=== PATIENT | male | born 1955 ===

== ENCOUNTER 2020-09-21 10:04 | Outpatient (REF) | payer MEDICARE, SELFPAY | END 2020-09-21 10:05 | disposition home or self-care (01) | LOC: HO.WFDLNP 10:04 | PROVIDERS: Visit Provider Internal Medicine | DX: Z20.822 Contact with and (suspected) exposure to COVID-19 (principal) | CPT/HCPCS: C9803; U0003; U0005 ==

== ENCOUNTER → 2021-09-24 11:10 | Outpatient (BNVA) | payer SELFPAY | PROVIDERS: PCP Internal Medicine; Visit Provider Physician Assistant Medical | DX: Z02.79 Encounter for issue of other medical certificate (principal) ==

== ENCOUNTER 2022-09-08 18:36 | Emergency (ER) | payer MEDICARE, SELFPAY ==
--- NOTE | ~2022-09-08 | CT_ITS ---
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 Sagittal and coronal reformatted images were obtained on the technologist's workstation. Oral contrast: No This CT examination was performed using dose optimization techniques as appropriate, variously including the following: *Automated exposure control *Adjustment of mA and/or kV according to patient size (this includes techniques or standardized protocols for targeted exams where dose is matched to indication/reason for exam; i.e. extremities or head) *Use of iterative reconstruction technique DLP: 662 mGy-cm FINDINGS: LUNG BASES: The visualized lung bases are unremarkable. LIVER, GALLBLADDER, AND BILIARY TREE: The liver is normal in size, shape, and attenuation. No focal hepatic lesion or biliary ductal dilatation is present. The gallbladder is contracted but otherwise unremarkable with no evidence of radiopaque gallstones, gallbladder wall thickening, or obvious pericholecystic inflammatory changes. PANCREAS: Unremarkable. SPLEEN: Unremarkable. ADRENAL GLANDS: Unremarkable. KIDNEYS AND URETERS: The kidneys are normal in size, shape, and attenuation. No hydronephrosis, hydroureter, or calculi seen. No perinephric stranding. BLADDER: Unremarkable. GASTROINTESTINAL TRACT: The small and large bowel are unremarkable. The appendix is unremarkable. ABDOMINAL WALL: No significant hernia is appreciated. LYMPH NODES: No retroperitoneal lymphadenopathy. VASCULAR: Unremarkable. PELVIC VISCERA: Some soft tissue thickening is seen in the medial right buttock cheek without an abscess. A small hydrocele is present on the right. No significant subcutaneous air is seen to suggest the presence of Kimo's gangrene. The prostate and seminal vesicles are not seen. OSSEOUS STRUCTURES: Unremarkable. Some minimal degenerative changes are seen. CT/CT abdomen pelvis w IV con IMPRESSION: 1. No evidence of Kimo's gangrene. 2. Soft tissue thickening in the medial right buttock cheek without abscess. 3. Small right-sided hydrocele. Fleischner guidelines were followed.
--- NOTE | ~2022-09-08 | US_ITS ---
EXAMINATION: US SCROTUM CLINICAL INFORMATION: Question scrotal abscess status post buttock incision and drainage COMPARISON: CT abdomen and pelvis performed earlier the same date TECHNIQUE: A sonogram of the scrotum was performed assessing jackson-scale appearance and color Doppler flow. Spectral Doppler analysis of the arterial and venous flow were performed in the testes bilaterally. FINDINGS: RIGHT: Right testicle measures 3.2 x 1.8 x 2.8 cm, volume 20.6 mL. No focal testicular parenchymal lesions are visualized. Spectral Doppler analysis of the arterial and venous flow is normal in the right testis. Right epididymal head is normal in size.Tiny 1-2 mm right epididymal head cyst. No right varicocele is seen. Trace peritesticular fluid. Right epididymal Doppler flow is normal. LEFT: Left testicle measures 2.7 x 1.4 x 2.7 cm, volume 5.3 mL. No focal testicular parenchymal lesions are visualized. Spectral Doppler analysis of the arterial and venous flow is normal in the left testis. Left epididymal head is normal in size. No left varicocele is seen. Trace peritendinous testicular fluid. Left epididymal Doppler flow is mildly increased. Heterogeneous and thickened appearing epididymal body/tail. Mild left lower scrotal edema and trace free fluid. No loculated fluid collection to suggest abscess US/US scrotum doppler IMPRESSION: 1. No sonographic evidence of scrotal abscess. There is mild inferior scrotal edema and trace nonloculated scrotal fluid on the left below the epididymal tail. 2. Findings consistent with left-sided epididymitis involving the body and tail. 3. No intratesticular mass or evidence of testicular torsion.
--- NOTE | ~2022-09-08 | US_ITS ---
EXAMINATION: US SCROTUM CLINICAL INFORMATION: Question scrotal abscess status post buttock incision and drainage COMPARISON: CT abdomen and pelvis performed earlier the same date TECHNIQUE: A sonogram of the scrotum was performed assessing jackson-scale appearance and color Doppler flow. Spectral Doppler analysis of the arterial and venous flow were performed in the testes bilaterally. FINDINGS: RIGHT: Right testicle measures 3.2 x 1.8 x 2.8 cm, volume 20.6 mL. No focal testicular parenchymal lesions are visualized. Spectral Doppler analysis of the arterial and venous flow is normal in the right testis. Right epididymal head is normal in size.Tiny 1-2 mm right epididymal head cyst. No right varicocele is seen. Trace peritesticular fluid. Right epididymal Doppler flow is normal. LEFT: Left testicle measures 2.7 x 1.4 x 2.7 cm, volume 5.3 mL. No focal testicular parenchymal lesions are visualized. Spectral Doppler analysis of the arterial and venous flow is normal in the left testis. Left epididymal head is normal in size. No left varicocele is seen. Trace peritendinous testicular fluid. Left epididymal Doppler flow is mildly increased. Heterogeneous and thickened appearing epididymal body/tail. Mild left lower scrotal edema and trace free fluid. No loculated fluid collection to suggest abscess US/US scrotum IMPRESSION: 1. No sonographic evidence of scrotal abscess. There is mild inferior scrotal edema and trace nonloculated scrotal fluid on the left below the epididymal tail. 2. Findings consistent with left-sided epididymitis involving the body and tail. 3. No intratesticular mass or evidence of testicular torsion.
[2022-09-08 18:39] VITALS: BP 161/64; PULSE 97; RESP 18; TEMP 36.6; O2SAT 94; BMI 27.2
[2022-09-08] MEDS: Lidocaine HCl 1 % MPF 5 ML VIAL SUBCUT (19:18)
[2022-09-08] MEDS: oxyCODONE HCl Immed Release 5 MG TABLET PO (19:18)
[2022-09-08] MEDS: 0.9 % Sodium Chloride 1,000 ML 999 ML IVCONT (19:42)
[2022-09-08 19:45] LABS: MANUAL DIFF FLAG NO
[2022-09-08 19:48] LABS: Basophils Percent Auto 0.3 % (0-2); Eosinophils Absolute Auto 0.2 X10*3/uL (0.0-0.4); Eosinophils Percent Auto 1.5 % (0-4); Hematocrit 43.3 % (42.0-52.0); Hemoglobin 14.8 g/dl (14.0-18.0); Imm Gran Abs Auto 0.04 X10*3/uL (0.00-0.03); Imm Gran Pct Auto 0.4 % (0.0-0.4); Lymphocytes Absolute Auto 0.9 X10*3/uL (1.2-4.9); Lymphocytes Percent Auto 8.9 % (20-40); Mean Corpuscular HGB Conc 34.2 g/dl (31.0-36.0); Mean Corpuscular Hemoglobin 31.3 pg (27.0-33.0); Mean Corpuscular Volume 91.5 fL (80.0-98.0); Mean Platelet Volume 9.4 fL (9.4-12.4); Monocytes Absolute Auto 0.9 X10*3/uL (0.1-1.2); Monocytes Percent Auto 8.9 % (2-11); Neutrophils Absolute Auto 7.9 x10*3/uL (2.0-8.3); Platelet Count 216 X10*3/uL (160-400); Red Blood Count 4.73 X10*6/uL (4.60-5.80); Red Cell Distribution Width 12.6 % (11.0-16.0); White Blood Count 9.8 X10*3/uL (4.8-10.8)
[2022-09-08 19:54] LABS: INTERNATIONAL NORM RATIO 1.1 (0.9-1.1)
[2022-09-08 19:57] LABS: Lactic Acid 1.1 mmol/L (0.5-2.0)
[2022-09-08 20:02] LABS: Alanine Aminotransferase 23 U/L (0-40); Albumin Level 3.8 g/dL (3.5-5.0); Alkaline Phosphatase 82 U/L (39-117); Anion Gap 14 (12-20); Aspartate Amino Transferase 23 U/L (5-37); Bilirubin Total 0.9 mg/dL (0.0-1.0); Blood Urea Nitrogen 25 mg/dL (9-16); Calcium 8.7 mg/dL (8.4-10.2); Carbon Dioxide 24 mmol/L (22-29); Chloride 108 mmol/L (96-108); Creatinine Clr Calc Pharmacy 55.2; Estimated Glomerular Filt Rate > 60; Glucose Random 129 mg/dL (60-115); Magnesium 2.1 mg/dL (1.6-2.6); Sodium 142 mmol/L (135-145); Total Protein 6.3 g/dL (6.5-8.0)
[2022-09-08] MEDS: iohexoL 350 MG/ML 100 ML INFUS..BTL IV (20:20)
--- NOTE | 2022-09-08 20:20 | ED.SKABFB ---
HPI - Skin/Abscess/Foreign Bdy General Chief complaint: Skin/Abscess/Foreign Body Stated complaint: Cyst Time Seen by Provider: 09/08/22 19:09 Source: patient Mode of arrival: ambulatory Limitations: language barrier ([place]-speaking) History of Present Illness HPI narrative: 67-year-old male who is [place]ese-speaking presenting to the ER with his at bedside with complaints of an abscess to his right buttocks radiating to his right scrotum that has been present since Friday worse today. Reports that he tried to squeeze the abscess at home himself and he had mild drainage although symptoms continue to worsen that is why he came here for further evaluation treatment. Reports he has never had this in the past. Denies any fevers, chills, history of MRSA, abdominal pain, urinary symptoms, diarrhea constipation, dysuria, hematuria, abnormal penile discharge, thoughts of STDs or any other symptoms complaints or concerns at this time. MD complaint: abscess/boil Onset (ago): day(s) (5) Location: buttocks and genitals Severity: moderate Quality: aching Pain Consistency: constant Relieving factors: none Exacerbating factors: palpation, movement and other (Walking and sitting) Context: none Associated symptoms: denies other symptoms Treatments prior to arrival: attempted to drain pus at home Related Data Previous Rx's Medication Instructions Recorded cephalexin 500 mg capsule 500 mg PO Q6H 10 days #40 caps 09/08/22 doxycycline monohydrate 100 mg 100 mg PO BID 10 days #20 tabs 09/08/22 tablet ibuprofen 800 mg tablet 800 mg PO Q8H PRN pain #14 tabs 09/08/22 oxycodone 5 mg tablet 5 mg PO Q6H PRN pain #14 tabs 09/08/22 Allergies Allergy/AdvReac Type Severity Reaction Status Date / Time No Known Allergies Allergy Unverified 04/13/20 18:47 [No Known Allergies*] Review of Systems Review of Systems: Constitutional : Denies history of same, Denies any other sites involved, Denies IV drug use, Denies history of MRSA, Denies swollen glands, Denies injury, Denies Fever, Denies Chills, + Sig Pain, Denies Systemic symptoms Cardiovascular : No Chest Pain, No SOB Respiratory : No Dyspnea Gastrointestinal : No abdominal pain Musculoskeletal : No Joint Swelling Skin : + abscess with surrounding erythema, No skin laceration, No Foreign bodies, No spreading rash, Denies bites, Denies discharge, Neuro : No Weakness, No Numbness/tingling Psych : No SI/HI/thoughts of self injury Yes all other systems are reviewed and are negative [facility] Past Medical History Attestation statement: The following information was validated with the patient. Source: old records reviewed, obtained from family and nursing notes reviewed Social History Social History Advance Directives: No Advance Directives Information Provided: Yes Physical Exam Vital Signs: Vital Signs: Last Vital Signs Temp 97.9 F 09/08/22 18:39 Pulse 97 09/08/22 18:39 Resp 18 09/08/22 18:39 BP 161/64 H 09/08/22 18:39 Pulse Ox 94 09/08/22 18:39 O2 Del Method 09/08/22 18:39 BMI result Body Mass Index 27.2 vital signs have been reviewed as normal and appeared to be correct. Blood pressure normal. Heart rate normal. Respiration rate normal. Temperature normal. Oxygen saturation normal. Appearance: Alert. Oriented X3. No acute distress. Head: Normal external exam. Normocephalic. Atraumatic. Eyes: PERRLA. EOMI. Conjunctiva and sclera normal. Eyelids normal. ENT: Pharynx normal. Uvula midline. Moist mucous membranes. Neck: Normal inspection. Neck supple. FROM. No adenopathy. No meningeal signs. CVS: Normal heart rate and rhythm. Heart sound normal. No murmurs noted. Pulses normal throughout. Respiratory: No respiratory distress. Painless inspiration. Breath sounds normal. No wheezes/rales/rhonchi noted. Chest nontender. No accessory muscle usage noted or decreased air movement noted. Abdomen: Soft and nontender. Bowel sounds normal in all 4 quadrants. No distention noted. No organomegaly noted. No visible injury noted. : Chaperoned by PA Student. Normal external exam. To the right groin/testicle area patient has erythema and induration questioning abscess. To the right buttocks near the scrotum patient has a fluctuant abscess that is already draining. I am unsure if this is tracking into the right groin. No additional masses/lumps/ecchymosis/edema/lacerations/lesions/vesicles noted. No hernia noted. No inguinal lymphadenopathy noted. Normal penis free of discharge. The scrotum is normal. Testicles are both descended bilaterally and appear normal. No hydrocele or scrotal mass noted. No varicocele. Epididymides normal. No blue dot sign. Back: No CVA tenderness. Full range of motion noted. Skin: Skin warm and dry. Normal skin color. Normal skin turgor. No rashes/lesions/lacerations noted. Extremities: Extremities exhibit normal range of motion. Extremities nontender. Neuro: Oriented X 3. No motor deficit. No sensory deficit. Reflexes normal. Course Course Course Narrative: 19:30pm IMP/Plan: abscess. No systemic toxicity, and pt looks well. + surrounding cellulitis. Not c/w nec fasc/ myositis/ DVT/ osteomyelitis. patient now status post I&D of abscess to right buttock and patient tolerated procedure well. No complications. 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 Reevaluation(s) Reevaluation #1: Labs reviewed - ESR 43. - BUN 25. - Random glucose 125. - CRP 9.30. - Total protein 6.3. Otherwise all other labs are within normal limits. At this time pending CT scan abdomen pelvis with IV contrast and ultrasounds. Patient is being given IV fluids and 2 g of IV Rocephin. Time: 20:37 Reevaluation #2: CT scan of abdomen pelvis with IV contrast negative for Kimo's gangrene although reveals soft tissue thickening in the medial right buttocks and cheek without abscess and right small side hydrocele Therefore at this time if ultrasound is negative patient can be discharged with antibiotics for cellulitis/abscess and instructions return if any new or worsening symptoms and to follow up with primary care provider. Patient understands agrees with this plan. Sign out to VAHID Palacios pending ultrasound. Time: 21:07 Medications Administered Discontinued Medications Generic Name Dose Route Start Last Admin Trade Name Freq PRN Reason Stop Dose Admin Sodium Chloride 1,000 mls @ 999 mls/hr 09/08/22 19:30 09/08/22 20:45 Ns IVCONT 09/08/22 20:30 Infused .Q1H1M RUPALI Infusion Ceftriaxone Sodium 2 gm/ 50 mls @ 100 mls/hr 09/08/22 20:35 09/08/22 20:46 Sodium Chloride IV 09/08/22 21:04 100 mls/hr ONCE ONE Administration Iohexol 100 ml 09/08/22 20:20 09/08/22 20:20 Iohexol 350 Mg/Ml 100 Ml Infus..Btl IV 09/08/22 20:21 85 ml ONCE ONE Administration Lidocaine HCl 5 ml 09/08/22 19:11 09/08/22 19:18 Lidocaine Hcl 1 % Mpf 5 Ml Vial SUBCUT 09/08/22 19:12 5 ml ONCE ONE Administration Oxycodone HCl 5 mg 09/08/22 19:11 09/08/22 19:18 Oxycodone Hcl Immed Release 5 Mg Tablet PO 09/08/22 19:12 5 mg ONCE ONE Administration Medical Decision Making Lab Data [facility] Lab Attestation statement: I reviewed the patient's lab results. 09/08/22 19:39 09/08/22 19:39 Labs: Lab Results 09/08/22 09/08/22 09/08/22 Range/Units 19:39 19:39 19:39 WBC 9.8 (4.8-10.8) X10*3/uL RBC 4.73 (4.60-5.80) X10*6/uL Hgb 14.8 (14.0-18.0) g/dl Hct 43.3 (42.0-52.0) % MCV 91.5 (80.0-98.0) fL MCH 31.3 (27.0-33.0) pg MCHC 34.2 (31.0-36.0) g/dl RDW 12.6 (11.0-16.0) % Plt Count 216 (160-400) X10*3/uL MPV 9.4 (9.4-12.4) fL Immature Gran % (Auto) 0.4 (0.0-0.4) % Neut % (Auto) 80.0 H (45-73) % Lymph % (Auto) 8.9 L (20-40) % Yates % (Auto) 8.9 (2-11) % Eos % (Auto) 1.5 (0-4) % Baso % (Auto) 0.3 (0-2) % Lymph # (Auto) 0.9 L (1.2-4.9) X10*3/uL Yates # (Auto) 0.9 (0.1-1.2) X10*3/uL Eos # (Auto) 0.2 (0.0-0.4) X10*3/uL Baso # (Auto) 0.0 (0.0-0.2) X10*3/uL Abs Immat Gran (auto) 0.04 H (0.00-0.03) X10*3/uL Absolute Neuts (auto) 7.9 (2.0-8.3) x10*3/uL Absolute Nucleated RBC 0.000 (0.0-0.012) X10*3/uL Nucleated RBC % (auto) 0.0 (0.0-0.2) /100WBC ESR (0-15) MM/HR PT 13.0 (10.0-13.1) SEC INR 1.1 (0.9-1.1) Sodium 142 (135-145) mmol/L Potassium 4.0 (3.3-5.1) mmol/L Chloride 108 (96-108) mmol/L Carbon Dioxide 24 (22-29) mmol/L Anion Gap 14 (12-20) BUN 25 H (9-16) mg/dL Creatinine 1.18 (0.5-1.4) mg/dL Estim Creat Clear Calc 55.2 Estimated GFR > 60 Random Glucose 129 H (60-115) mg/dL Lactic Acid (0.5-2.0) mmol/L Calcium 8.7 (8.4-10.2) mg/dL Magnesium 2.1 (1.6-2.6) mg/dL Total Bilirubin 0.9 (0.0-1.0) mg/dL AST 23 (5-37) U/L ALT 23 (0-40) U/L Alkaline Phosphatase 82 (39-117) U/L C-Reactive Protein 9.30 H (< or = 0.50) mg/dL Total Protein 6.3 L (6.5-8.0) g/dL Albumin 3.8 (3.5-5.0) g/dL 09/08/22 09/08/22 Range/Units 19:39 19:39 WBC (4.8-10.8) X10*3/uL RBC (4.60-5.80) X10*6/uL Hgb (14.0-18.0) g/dl Hct (42.0-52.0) % MCV (80.0-98.0) fL MCH (27.0-33.0) pg MCHC (31.0-36.0) g/dl RDW (11.0-16.0) % Plt Count (160-400) X10*3/uL MPV (9.4-12.4) fL Immature Gran % (Auto) (0.0-0.4) % Neut % (Auto) (45-73) % Lymph % (Auto) (20-40) % Yates % (Auto) (2-11) % Eos % (Auto) (0-4) % Baso % (Auto) (0-2) % Lymph # (Auto) (1.2-4.9) X10*3/uL Yates # (Auto) (0.1-1.2) X10*3/uL Eos # (Auto) (0.0-0.4) X10*3/uL Baso # (Auto) (0.0-0.2) X10*3/uL Abs Immat Gran (auto) (0.00-0.03) X10*3/uL Absolute Neuts (auto) (2.0-8.3) x10*3/uL Absolute Nucleated RBC (0.0-0.012) X10*3/uL Nucleated RBC % (auto) (0.0-0.2) /100WBC ESR 43 H (0-15) MM/HR PT (10.0-13.1) SEC INR (0.9-1.1) Sodium (135-145) mmol/L Potassium (3.3-5.1) mmol/L Chloride (96-108) mmol/L Carbon Dioxide (22-29) mmol/L Anion Gap (12-20) BUN (9-16) mg/dL Creatinine (0.5-1.4) mg/dL Estim Creat Clear Calc Estimated GFR Random Glucose (60-115) mg/dL Lactic Acid 1.1 (0.5-2.0) mmol/L Calcium (8.4-10.2) mg/dL Magnesium (1.6-2.6) mg/dL Total Bilirubin (0.0-1.0) mg/dL AST (5-37) U/L ALT (0-40) U/L Alkaline Phosphatase (39-117) U/L C-Reactive Protein (< or = 0.50) mg/dL Total Protein (6.5-8.0) g/dL Albumin (3.5-5.0) g/dL Independent Interpretation I performed an independent interpretation of an: CT Scan (I reviewed the CT scan results with the patient reviewed the images myself.) Radiology Impression Discussion of test interpretation with radiology: I have reviewed the radiologist's reading. Radiologist Impression: FINDINGS: LUNG BASES: The visualized lung bases are unremarkable.? LIVER, GALLBLADDER, AND BILIARY TREE: The liver is normal in size, shape, and attenuation. No focal hepatic lesion or biliary ductal dilatation is present. The gallbladder is contracted but otherwise unremarkable with no evidence of radiopaque gallstones, gallbladder wall thickening, or obvious pericholecystic inflammatory changes.? PANCREAS: Unremarkable.? SPLEEN: Unremarkable.? ADRENAL GLANDS: Unremarkable.? KIDNEYS AND URETERS: The kidneys are normal in size, shape, and attenuation. No hydronephrosis, hydroureter, or calculi seen. No perinephric stranding. ? BLADDER: Unremarkable.? GASTROINTESTINAL TRACT: The small and large bowel are unremarkable. The appendix is unremarkable.? ABDOMINAL WALL: No significant hernia is appreciated.? LYMPH NODES: No retroperitoneal lymphadenopathy. VASCULAR: Unremarkable. PELVIC VISCERA: Some soft tissue thickening is seen in the medial right buttock cheek without an abscess. A small hydrocele is present on the right. No significant subcutaneous air is seen to suggest the presence of Kimo's gangrene. The prostate and seminal vesicles are not seen. OSSEOUS STRUCTURES: Unremarkable. Some minimal degenerative changes are seen. CT/CT abdomen pelvis w IV con IMPRESSION: 1.? No evidence of Kimo's gangrene. 2.? Soft tissue thickening in the medial right buttock cheek without abscess. 3.? Small right-sided hydrocele. ? Fleischner guidelines were followed. Independent Historian Clinical information obtained from an independent historian. History obtained from or confirmed by: Spouse Prescription Management I considered prescription management with: Pain Medication and Antibiotic Procedures Abscess I/D Site: hi-rectal (Right buttocks) Side (if applicable): right Local Anesthetic: lidocaine 1% Amount of anesthesia used (mL): 5 Technique: needle aspiration and incised with blade Amount of fluid expressed (mL): 5 Sent for culture/gram staining?: No Irrigation: Yes Packing used?: none Complications: other (No complications patient tolerated procedure well) Critical Care Time Critical Care Time Critical Care Time: Yes Total Critical Care Time: 60 Attestation: I personally attest to this time spent taking care of the patient Discharge Plan Discharge Clinical Impression: Cellulitis, Abscess of skin or subcutaneous tissue Patient Disposition: Home, Self-Care Instructions: Cellulitis (ED), Abscess Incision and Drainage (DC), Warm Compress or Soak (ED) Prescriptions: New doxycycline monohydrate 100 mg tablet 100 mg PO BID 10 Days Qty: 20 0RF cephalexin 500 mg capsule 500 mg PO Q6H 10 Days Qty: 40 0RF oxycodone 5 mg tablet 5 mg PO Q6H PRN (Reason: pain) Qty: 14 0RF Rx Instructions: Partial Fill upon patient request. ibuprofen 800 mg tablet 800 mg PO Q8H PRN (Reason: pain) Qty: 14 0RF Referrals: Physician,Unknown J [Primary Care Provider] - 2 days Print Language: [place]ese
[2022-09-08 20:25] LABS: Erythrocyte Sedimentation Rate 43 MM/HR (0-15)
[2022-09-08] MEDS: cefTRIAXone sodium 2 GM in 0.9 % Sodium Chloride 50 ML IV (20:46)
== END 2022-09-08 22:19 | disposition home or self-care (01) ==
PROVIDERS: Physician Assistant Medical; Emergency Provider Emergency Medicine
DX: L02.31 Cutaneous abscess of buttock (principal); N50.82 Scrotal pain; R10.30 Lower abdominal pain, unspecified; R10.2 Pelvic and perineal pain; Z79.899 Other long term (current) drug therapy
CPT/HCPCS: 10060; 36415; 74177; 76870; 80053; 83605; 83735; 85025; 85610; 85652; 86140; 87040; 93975; 96361; 96374; 99283; 99284; J0696; Q9967

== ENCOUNTER 2023-02-02 07:59 | Emergency (ER) | payer MEDICARE, SELFPAY ==
[2023-02-02 08:19] VITALS: BP 150/77; PULSE 77; RESP 18; TEMP 36.6; O2SAT 96; BMI 28.5
[2023-02-02 08:27] VITALS: BP 151/86; PULSE 75; RESP 16; TEMP 36.6; O2SAT 98
--- NOTE | 2023-02-02 08:53 | ED.SKABFB ---
HPI - Skin/Abscess/Foreign Bdy General Chief complaint: Skin/Abscess/Foreign Body Stated complaint: cyst on buttocks Time Seen by Provider: 02/02/23 08:51 Source: patient Mode of arrival: ambulatory Limitations: no limitations History of Present Illness HPI narrative: 67 yo male with with past medical history of HLD here with right buttocks redness, swelling and concern for abscess x 4 days. No fevers, chills. Related Data Previous Rx's Medication Instructions Recorded cephalexin 500 mg capsule 500 mg PO Q6H 10 days #40 caps 09/08/22 doxycycline monohydrate 100 mg 100 mg PO BID 10 days #20 tabs 09/08/22 tablet ibuprofen 800 mg tablet 800 mg PO Q8H PRN pain #14 tabs 09/08/22 levofloxacin 500 mg tablet 500 mg PO DAILY 10 days #10 tabs 09/08/22 oxycodone 5 mg tablet 5 mg PO Q6H PRN pain #14 tabs 09/08/22 cephalexin 500 mg capsule 500 mg PO BID #14 caps 02/02/23 doxycycline hyclate 100 mg tablet 100 mg PO BID #14 tabs 02/02/23 Allergies Allergy/AdvReac Type Severity Reaction Status Date / Time No Known Allergies Allergy Unverified 04/13/20 18:47 [No Known Allergies*] Review of Systems Review of Systems: Yes all other systems are reviewed and are negative Constitutional: Constitutional: Reports no additional constitutional complaints, Denies body ache(s), Denies chills, Denies fever(s), Denies headache(s) and Denies weakness Eyes: Eyes: Reports no additional eye complaints and Denies change in vision ENT: Reports system reviewed and no additional complaints, except as documented, Denies dizziness, Denies headache(s), Denies nasal congestion, Denies nasal discharge and Denies neck pain Cardiovascular: Cardiovascular: Reports no additional cardiovascular complaints, Denies chest pain, Denies leg edema and Denies dyspnea Respiratory: Respiratory: Reports no additional respiratory complaints, Denies cough and Denies dyspnea Gastrointestinal: Gastrointestinal: Reports no additional gastrointestinal complaints, Denies abdominal pain, Denies diarrhea, Denies nausea and Denies vomiting Genitourinary: Genitourinary: Denies urinary incontinence Musculoskeletal: Musculoskeletal: Reports no additional musculoskeletal complaints, Denies back pain, Denies arthralgias, Denies joint swelling, Denies neck pain, Denies numbness and Denies tingling Integumentary/Breasts: Skin/Breast: Reports system reviewed and no additional complaints, except as docu, Reports swelling, Reports erythema and Denies rash Neurologic: Reports system reviewed and no additional complaints, except as documented, Denies dizziness, Denies headache(s), Denies numbness, Denies tingling and Denies weakness PMFSH Past Medical History Attestation statement: The following information was validated with the patient. Source: old records reviewed and nursing notes reviewed Social History Social History Smoked in Last 30 Days: No Use of substances other than those prescribed or required for medical reasons: No Advance Directives: Yes Advance Directives Information Provided: Yes Advance Directives on File: No Physical Exam Vital Signs: Vital Signs: Last Vital Signs Temp 97.8 F 02/02/23 08:27 Pulse 75 02/02/23 08:27 Resp 16 02/02/23 08:27 BP 151/86 H 02/02/23 08:27 Pulse Ox 98 02/02/23 08:27 O2 Del Method Room Air 02/02/23 08:27 BMI result Body Mass Index 28.5 Back/Spine/Pelvis: Back/spine/pelvis image: 1. +abscess which is medium sized and indurated with a central area of abrasion. there is no extension to the anus or perineum Medical Decision Making Medical Decision Making MDM Narrative: This is a 67-year-old male who presents the ER with 4 days of area of redness and swelling over the right buttocks with no reports of fevers or chills. On exam the patient has a medium-sized abscessed which is quite indurated and not fluctuant. There is no extension into the perineum or anus. Patient is afebrile, nontoxic-appearing we discussed at this time incision and drainage with not likely be helpful as the area is quite indurated. I do recommend the patient do warm compresses at home and I will initiate oral antibiotics. Reviewed worrisome signs and symptoms and when to return to the emergency room. Comfortable plan for discharge home. Differential Diagnosis Differential Diagnoses: The differential diagnosis associated with the presentation includes As there is no extension into the anus or perineum I have low suspicion for perirectal abscess or Kimo gangrene Patient has no systemic signs or symptoms concerning for infection such as fever, vomiting, weakness. Prescription Management I considered prescription management with: Antibiotic Abscess requiring oral antibiotic Discharge Plan Discharge Clinical Impression: Abscess of skin or subcutaneous tissue Patient Disposition: Home, Self-Care Instructions: Abscess (ED) Additional Instructions: Warm compresses four times daily Return for increasing redness, swelling, fever >100.4 Prescriptions: New cephalexin 500 mg capsule 500 mg PO BID Qty: 14 0RF doxycycline hyclate 100 mg tablet 100 mg PO BID Qty: 14 0RF No Action doxycycline monohydrate 100 mg tablet 100 mg PO BID 10 Days Qty: 20 0RF cephalexin 500 mg capsule 500 mg PO Q6H 10 Days Qty: 40 0RF oxycodone 5 mg tablet 5 mg PO Q6H PRN (Reason: pain) Qty: 14 0RF Rx Instructions: Partial Fill upon patient request. ibuprofen 800 mg tablet 800 mg PO Q8H PRN (Reason: pain) Qty: 14 0RF levofloxacin 500 mg tablet 500 mg PO DAILY 10 Days Qty: 10 0RF Referrals: David Brothers MD [Primary Care Provider] - 5 days Interventions: ED Discharge Assessment Last Done: 02/02/23 09:25 Discharge Date/Time: 02/02/23 09:25
== END 2023-02-02 09:25 | disposition home or self-care (01) ==
PROVIDERS: Emergency Provider Emergency Medicine; PCP Internal Medicine
DX: L02.31 Cutaneous abscess of buttock (principal); Z79.899 Other long term (current) drug therapy
CPT/HCPCS: 99283; 99284

== ENCOUNTER → 2023-09-10 09:08 | Outpatient (BNVA) | payer SELFPAY | PROVIDERS: PCP Internal Medicine; Visit Provider Physician Assistant | DX: Z02.79 Encounter for issue of other medical certificate (principal) ==